=== PATIENT | female | born 1950 | race Hispanic/Latino ===

== ENCOUNTER → 2020-11-09 | Day surgery (SDC) | payer MEDICARE ==
[2020-11-04 14:35] LABS: BASOPHILS # (AUTO) 0.1 (0.0-0.1); EOSINOPHILS # (AUTO) 0.1 (0.0-0.4); EOSINOPHILS % 2.1 % (0.0-6.0); HEMATOCRIT 39.9 % (34.2-44.1); HEMOGLOBIN 12.7 g/dL (12.0-16.0); LYMPHOCYTES # (AUTO) 1.2 (1.0-3.2); LYMPHOCYTES % 19.1 % (18.0-39.1); MEAN CORPUSCULAR HEMOGLOBIN 28.2 pg (28-32); MEAN CORPUSCULAR HGB CONC 31.8 g/dL (31-35); MEAN CORPUSCULAR VOLUME 88.5 fL (81-99); MONOCYTES # (AUTO) 1.5 (0.2-0.8); MONOCYTES % 24.7 % (4.4-11.3); NEUTROPHILS # (AUTO) 3.2 (2.1-6.9); NEUTROPHILS % 52.3 % (38.7-80.0); PLATELET COUNT 150 x10e3/uL (140-360); RED BLOOD COUNT 4.51 x10e6/uL (3.6-5.1); RED CELL DISTRIBUTION WIDTH 13.6 % (11.7-14.4)
[2020-11-04 16:24] LABS: BAND NEUTROPHILS % (MANUAL) 2 %; LYMPHOCYTES % (MANUAL) 20 % (19-48); MONOCYTES % (MANUAL) 16 % (3.4-9.0); NEUTROPHILS % (MANUAL) 60 % (40-74); PLATELET ESTIMATE ADEQUATE; PLATELET MORPHOLOGY COMMENT NORMAL
[2020-11-04 16:25] LABS: RBC MORPHOLOGY COMMENT NORMAL
[~2020-11-09] MED LIST: ALPRAZOLAM0.25 M1 PO; ARAVA20 MG PO; CELEBREX100 MG PO; DULOXETINE HCL30 MG PO; GABAPENTIN300 MG PO; LIDOCAINE HCL 2% LOCAL INJ 5 ML SDV VIAL INJ ONE; MIDAZOLAM HCL 2 MG/2 ML VIAL ONE; OMEPRAZOLE40 MG PO; PANTOPRAZOLE SO40 MG PO; PROPOFOL IV EMULSION 10 MG/ML 20 ML VIAL ONE; PROZAC20 MG PO
[2020-11-09 16:25] VITALS: BP 140/70
== END | disposition home or self-care (01) ==
LOC: OR 10:49
PROVIDERS: ATTEND Internal Medicine Gastroenterology
DX: K92.1 Melena (principal); D12.4 Benign neoplasm of descending colon; K31.7 Polyp of stomach and duodenum; K29.70 Gastritis, unspecified, without bleeding; K20.90 Esophagitis, unspecified without bleeding; K59.00 Constipation, unspecified; K21.9 Gastro-esophageal reflux disease without esophagitis; K64.8 Other hemorrhoids; K44.9 Diaphragmatic hernia without obstruction or gangrene; D64.9 Anemia, unspecified; Z87.11 Personal history of peptic ulcer disease; R03.0 Elevated blood-pressure reading, without diagnosis of hypertension; Z91.041 Radiographic dye allergy status; Z01.810 Encounter for preprocedural cardiovascular examination; Z01.812 Encounter for preprocedural laboratory examination
CPT/HCPCS: 36415; 43239; 45380; 85025; 93005; J2001; J2250; J2704; 45378

== ENCOUNTER → 2021-06-24 | Day surgery (SDC) | payer MEDICARE ==
[2021-06-21 13:10] LABS: BASOPHILS # (AUTO) 0.1 (0.0-0.1); BASOPHILS % 1.7 % (0.0-1.0); EOSINOPHILS % 0.2 % (0.0-6.0); HEMOGLOBIN 11.8 g/dL (12.0-16.0); LYMPHOCYTES # (AUTO) 1.4 (1.0-3.2); LYMPHOCYTES % 33.4 % (18.0-39.1); MEAN CORPUSCULAR HEMOGLOBIN 28.3 pg (28-32); MEAN CORPUSCULAR HGB CONC 31.9 g/dL (31-35); MEAN CORPUSCULAR VOLUME 88.7 fL (81-99); MONOCYTES # (AUTO) 1.5 (0.2-0.8); MONOCYTES % 34.6 % (4.4-11.3); NEUTROPHILS # (AUTO) 1.2 (2.1-6.9); NEUTROPHILS % 29.4 % (38.7-80.0); PLATELET COUNT 153 x10e3/uL (140-360); RED BLOOD COUNT 4.17 x10e6/uL (3.6-5.1); RED CELL DISTRIBUTION WIDTH 12.9 % (11.7-14.4)
[2021-06-21 13:29] LABS: ALBUMIN 3.9 g/dL (3.5-5.0); ALBUMIN/GLOBULIN RATIO 1.1 (0.8-2.0); ANION GAP 14.3 mmol/L (8-16); CALCIUM 9.6 mg/dL (8.4-10.2); CREATININE, SERUM 0.71 mg/dL (0.57-1.11); POTASSIUM 4.3 mmol/L (3.5-5.1)
[~2021-06-24] MED LIST changes: +BUPIVACAINE 0.25% 30ML SDV ONE; +CALCIUM PO; +DEXAMETHASONE SOD PHOS INJ 4 MG/ML SDV ONE; +DICYCLOMINE HCL10 MG PO; +FENTANYL CITRATE/PF 100MCG/2 ML INJ ONE; +FERROUS SULFATE PO; +GLYCOPYRROLATE INJ 0.2 MG/ML VIAL ONE; +HYDROCODONE/APAP 7.5MG-325MG 1 EA TAB ONE; +KETOROLAC TROMETHAMINE 30 MG/ML VIAL ONE; +NEOSTIGMINE 1 MG/ML 10ML VIAL ONE; +ONDANSETRON HCL INJ 2MG/ML 2ML 2 MG/ML VIAL ONE; +POVIDONE IODINE 0.05% 0.05 % ML PO ONE; +ROCURONIUM BROMIDE 10 MG/ML 5ML VIAL IV ONE; +SEVOFLURANE INHAL SOLN 250 ML PEN BTL ONE; +VITAMIN D310 MCG PO; +ZYRTEC10 M3 PO
[2021-06-24 15:15] VITALS: BP 141/74
== END | disposition home or self-care (01) ==
LOC: OR 07:31
PROVIDERS: ATTEND Surgery
DX: K80.10 Calculus of gallbladder with chronic cholecystitis without obstruction (principal); D64.9 Anemia, unspecified; M54.2 Cervicalgia; M06.9 Rheumatoid arthritis, unspecified; M47.816 Spondylosis without myelopathy or radiculopathy, lumbar region; K21.9 Gastro-esophageal reflux disease without esophagitis; Z91.041 Radiographic dye allergy status; Z01.810 Encounter for preprocedural cardiovascular examination; Z01.812 Encounter for preprocedural laboratory examination; Z01.818 Encounter for other preprocedural examination; Z20.822 Contact with and (suspected) exposure to COVID-19; Z79.899 Other long term (current) drug therapy; Z85.828 Personal history of other malignant neoplasm of skin
CPT/HCPCS: 36415; 47562; 71046; 80053; 85025; 88304; 93005; C1766; J1100; J1885; J2001; J2250; J2405; J2704; J2710; J3010; U0002